=== PATIENT | male | born 1940 | race Caucasian/White ===

== ENCOUNTER 2024-07-14 09:28 | Emergency (ER) | payer MEDICARE | END 2024-07-14 10:41 | disposition home or self-care (01) | LOC: CSHERS 09:28 | DX: S30.1XXA Contusion of abdominal wall, initial encounter (principal); S20.20XA Contusion of thorax, unspecified, initial encounter; W19.XXXA Unspecified fall, initial encounter; I10 Essential (primary) hypertension | CPT/HCPCS: 71250; 74177 ==